=== PATIENT | female | born 1960 | race Two or more races ===

== ENCOUNTER 2025-03-09 18:27 | Emergency (ER) | payer OTHER ==
[~2025-03-09] VITALS: Ht 157.5 cm; Wt 64.9 kg
--- NOTE | 2025-03-09 18:41 | ECG ---
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
--- NOTE | 2025-03-09 19:10 | ED.PDOC ---
GI ASSESSMENT HPI Comments 64-year-old female who came to ER for abdominal pain. Patient denies any medical problems or any abdominal surgeries. States she has been having episodes of abdominal pain for over 4 months. Abdominal pain described to be diffuse, localized to the epigastric area, with the episodes of bloatedness e specially after meals. Also associated with nausea, vomiting, shortness a breath, fatigability, and blackish stools. Patient recently admitted at [facility], endoscopy with biopsy done, and patient was referred to [facility] for follow-up. Patient does not know what the biopsy results are. Persistence of abdominal pain prompting patient to come to the ER REVIEW OF SYSTEMS: General: No fever, no chills, or fatigue HEENT: No sore throat, no earache, no congestion, no neck pain. Cardiac: No chest pain. No palpitations. Lungs: (+) shortness of breath, no cough. GI: (+) nausea, (+) vomiting, no diarrhea, no constipation, (+) abdominal pain, (+) melena : No dysuria, frequency, or urgency. No hematuria. Musculoskeletal: No joint pain , no joint swelling, no extremity edema. Skin: No rash, no itching. Neuro: No headache, no dizziness, no weakness EXAM: General: Awake, alert and oriented. No acute distress. Skin: Skin in warm, dry and intact. Appropriate color for ethnicity. HEENT: The head is normocephalic and atraumatic. Conjunctivae are clear without exudates or hemorrhage. Sclera is non-icteric. EOM are intact. No signs of nystagmus. Eyelids are normal in appearance without swelling or lesions. Oral mucosa is pink and moist Neck: The neck is supple with normal range of motion. No JVD. Cardiac: Heart rate and rhythm are normal. No murmurs, gallops, or rubs are auscultated. Respiratory: No signs of respiratory distress. Lung sounds are clear in all lobes bilaterally without rales, rhonchi, or wheezes. Abdominal: Abdomen is tense, generally tender. Bowel sounds are present and normoactive in all four quadrants. Extremities: Upper and lower extremities are atraumatic in appearance without deformity or edema. Neurological: The patient is awake, alert and oriented to person, place, and time with normal speech. Speech is clear. There is no facial asymmetry. Normal gait. Psychiatric: Appropriate mood and affect. Good judgement and insight Chief Complaint: Abdominal Pain Time Seen by MD: 19:09 Reviewed Notes: Nurses Notes Allergies: Coded Allergies: No Known Drug Allergy (Verified Allergy, Unknown, 03/10/25) Information Source: Patient Mode of Arrival: Ambulatory Timing: Months Duration: Intermittent Past Medical History PAST MEDICAL HISTORY: Denies Surgical History (Other): Breast surgery, endoscopy JEWEL HOLE GAUGER History: Denies all JEWEL HOLE GAUGER Hx Family History Family History: Reviewed,noncontributory to illness Social History Smoker: Non-Smoker Alcohol: Denies ETOH Use Drugs: Denies Drug Use Lives In: Home EKG EKG : Pulse Rate (adult): 80 Cardiac Rhythm: NSR Was a procedure done? Was a procedure done?: No GI differential Dx Differential Diagnosis: Cholecystitis, Diverticular disease, Gastritis/PUD, Gastroenteritis, Hepatitis, Pancreatitis, UTI, Urolithiasis X-Ray, Labs, Meds, VS Vital Signs Date Time Temp Pulse Resp B/P (MAP) Pulse Ox O2 Delivery O2 Flow Rate FiO2 03/10/25 04:00 97.3 82 21 143/84 (103) 95 97.3 03/10/25 01:50 Room Air* 0 21 03/10/25 01:50 97.5 80 20 144/75 (98) 97 97.5 03/10/25 00:33 98.8 87 16 166/80 (108) 98 98.8 03/09/25 20:43 98.0 84 19 146/69 (94) 96 98.0 03/09/25 19:10 80 03/09/25 18:37 80 03/09/25 18:28 97.4 88 18 145/79 97 97.4 Lab Test 03/10/25 04:11 03/09/25 20:24 03/09/25 19:20 Range/Units White Blood Count 9.2 8.2 4.4-10.8 10^3/uL Red Blood Count 3.94 L 4.37 4.0-5.20 10^6/uL Hemoglobin 11.9 L 12.9 12.2-16.2 g/dL Hematocrit 34.5 #L 38.4 36.0-46.0 % Mean Corpuscular Volume 87.6 87.8 80.0-100.0 fL Mean Corpuscular Hemoglobin 30.2 29.5 28.0-32.0 pg Mean Corpuscular Hemoglobin Concent 34.5 33.6 32.0-36.0 g/dL Red Cell Distribution Width 14.4 H 14.2 11.8-14.3 % Platelet Count 585 H 646 H 140-450 10^3/uL Mean Platelet Volume 7.2 6.9 6.9-10.8 fL Neutrophils (%) (Auto) 75.1 63.8 37.0-80.0 % Lymphocytes (%) (Auto) 16.6 26.5 10.0-50.0 % Monocytes (%) (Auto) 7.1 7.9 0.0-12.0 % Eosinophils (%) (Auto) 0.4 0.8 0.0-7.0 % Basophils (%) (Auto) 0.8 1.0 0.0-2.0 % Neutrophils # (Auto) 6.9 5.2 1.6-8.6 10 ^3/uL Lymphocytes # (Auto) 1.5 2.2 0.4-5.4 10 ^3/uL Monocytes # (Auto) 0.7 0.6 0-1.3 10 ^3/uL Eosinophils # (Auto) 0 0.1 0-0.8 10 ^3/uL Basophils # (Auto) 0.1 0.1 0-0.2 10 ^3/uL Nucleated Red Blood Cells 0.0 0.0 % Sodium Level 134 L 134 L 136-145 mmol/L Potassium Level 3.9 4.0 3.5-5.1 mmol/L Chloride Level 96 L 96 L 98-107 mmol/L Carbon Dioxide Level 27 26 20-31 mmol/L Anion Gap 11 12 5-15 Blood Urea Nitrogen 8 L 6 L 9-23 mg/dL Creatinine 0.66 0.73 0.550-1.02 mg/dL Glomerular Filtration Rate Calc 97 91 >90 mL/min BUN/Creatinine Ratio 12.1 8.2 L 10.0-20.0 Serum Glucose 126 H 109 H 74-106 mg/dL Calcium Level 9.2 9.6 8.7-10.4 mg/dL Total Bilirubin 0.9 0.9 0.2-1.0 mg/dL Aspartate Amino Transferase (AST) 84 H 93 H 13-40 U/L Alanine Aminotransferase (ALT) 72 H 77 H 7-40 U/L Alkaline Phosphatase 754 H 804 H 46-116 U/L Total Protein 7.4 7.9 5.7-8.2 g/dL Albumin 3.8 4.2 3.2-4.8 g/dL Troponin I High Sensitivity < 3 L < 3 L </=34 ng/L Lactic Acid Level 1.2 0.4-2.0 mmol/L B-Type Natriuretic Peptide 21.62 0-100 pg/mL Lipase 57 H 12-53 U/L Current Medications Medications (Trade) Dose Ordered Sig/Maday Route Start Time Stop Time Status Last Admin Al Hydrox/Mg Hydrox/Simethicone (Maalox Plus) 30 ml ONCE ONCE PO 03/09/25 20:00 03/09/25 20:01 DC 03/09/25 20:47 Lidocaine HCl (Xylocaine 2% Viscous) 10 ml ONCE ONCE PO 03/09/25 20:00 03/09/25 20:01 DC 03/09/25 20:47 Sodium Chloride 1,000 ml @ 60 mls/hr [id number] IV 03/10/25 02:30 03/10/25 05:02 DC 03/10/25 03:23 Ondansetron HCl (Zofran) 4 mg Q4HP PRN IV 03/10/25 02:30 03/10/25 09:26 DC 03/10/25 03:44 Calcium Carbonate (Tums) 500 mg Q6HPRN PRN PO 03/10/25 03:45 03/10/25 09:26 DC 03/10/25 03:48 Exam: CT CT AB PEL WITH IV CON ONLY History: epigastric abdominal pain COMPARISON: None Technique: Multidetector spiral CT of the abdomen and pelvis was performed from lung bases to pubic symphysis. Intravenous contrast was administered during this examination. Portal venous imaging was obtained. Axial, coronal and sagittal multiplanar reformats were performed by the technologist on a separate workstation. Radiation Dose : 1. Abdomen/Pelvis: CTDIvol 10.11mGy, DLP 596.27 mGy*cm. Findings: Lower Chest: Mild scarring/atelectasis in the lung bases. Unremarkable imaged heart. Partially imaged breast implants. Liver: Small hypoenhancing lesion in the left lobe. Additional hypoenhancement along the falciform ligament. Micronodular contour suggested. Gallbladder and Biliary Tree: Distended gallbladder without evidence of stone or significant wall thickening. Small wall calcification near the fundus. No ductal dilation. Pancreas: Unremarkable. Spleen: Unremarkable Adrenal Glands: Unremarkable Kidneys: No acute findings. Simple right superior renal cyst. Bladder: Decompressed, no obvious abnormality. Pelvic Organs: Unremarkable. Bowel: No obstruction or significant bowel wall thickening. Small hiatal hernia. Nonvisualized appendix. Vasculature: Unremarkable. Lymphadenopathy: No evident adenopathy. Peritoneum: Large volume 4 quadrant ascites. No free air or fluid collection. Abdominal Wall: Right mid abdominal postsurgical change. Musculoskeletal: No acute findings. Mild degenerative changes. IMPRESSION: 1. Large volume 4 quadrant ascites of unclear etiology. Mild nodular contour of the liver is suggested, but no significant other findings associated with cirrhosis or portal hypertension are identified. Further clinical workup recommended. 2. Probably benign hypoenhancing hepatic lesions may be further characterized with outpatient liver CT or MRI if indicated based on risk factors. Radiation optimization: All CT scans at this facility use at least one of these dose optimization techniques: automated exposure control mA and/or kV adjustment per patient size (includes targeted exams where dose is matched to clinical indication) or iterative reconstruction. T RADIOGRAPH Indication: sob Technique: 1 view Comparison: None FINDINGS: Lines and Tubes: None Lungs/Pleura: No focal consolidation, pleural effusion or pneumothorax. Cardiomediastinum: Unremarkable. Other: No acute osseous abnormality. Breast implants. IMPRESSION: 1. No acute cardiopulmonary abnormality. Time of 1ST Reevaluation: 19:06 Reevaluation 1ST: Unchanged Patient Education/Counseling: Need For Follow Up Family Education/Counseling: No Family Present SEPSIS Sepsis Screen Date sepsis recognized/suspect: Mar 09, 2025 Time Sepsis recognized/suspect: 1830 Recent Procedure: No On Antibiotic Therapy: No Respiratory Rate >20: No Heart Rate >90: No Temp<36 C (96.8 F) or >38.3 C: No SBP <90 or MAP <65 mmHG: No New Acute Mental Status Change: No Is the patient on CPAP, BIPAP,: No Physician Orders Urinalysis (03/09/25 19:12) Chest Xray 1 View (03/09/25 19:12) Ct Ab Pel With Iv Con Only (03/09/25 19:12) * [facility] Blood [facility] (03/10/25 02:29) Code Status (03/10/25 02:29) Oxygen Per Hour (03/10/25 02:29) Discharge (03/10/25 05:11) Vital Signs Date Time Temp Pulse Resp B/P (MAP) Pulse Ox O2 Delivery O2 Flow Rate FiO2 03/10/25 04:00 97.3 82 21 143/84 (103) 95 97.3 03/10/25 01:50 Room Air* 0 21 03/10/25 01:50 97.5 80 20 144/75 (98) 97 97.5 03/10/25 00:33 98.8 87 16 166/80 (108) 98 98.8 03/09/25 20:43 98.0 84 19 146/69 (94) 96 98.0 03/09/25 19:10 80 03/09/25 18:37 80 03/09/25 18:28 97.4 88 18 145/79 97 97.4 Laboratory Tests Test 03/09/25 19:20 03/10/25 04:11 Lactic Acid Level 1.2 mmol/L (0.4-2.0) White Blood Count 8.2 10^3/uL (4.4-10.8) 9.2 10^3/uL (4.4-10.8) Departure 1 Departure Time of Disposition: 01:25 Impression: Primary Impression: Abdominal pain Additional Impressions: Ascites Elevated liver function tests Disposition: ADMITTED INPATIENT Condition: Stable Comments PATIENT ADMITTED TO HOSPITALIST SERVICE FOR FURTHER TREATMENT, EVALUATION AND MONITORING. Extensive evaluation was performed in attempt to identify or rule out: (See differential diagnosis section) The following tests were ordered, and results were reviewed by me and discussed with patient: (See diagnostic results section) Information was gathered from interviewing the following independent historians: N/A Discussion of management or test interpretation with external physician/other qualified health wound care physician: [place] at 4:30 a.m. Decision regarding hospitalization or escalation of hospital level of care: Risk and benefits of admission for further treatment of patient's condition was considered. Due to patient's current clinical condition, high risk of decline and poor outcome if discharged and need for further inpatient management and monitoring, patient will be admitted to the hospital. Discussed with patient. Drug therapy requiring intensive monitoring for toxicity: IV contrast Parenteral controlled substances: N/A Decision regarding elective major surgery with identified patient or procedure risk factors: N/A Decision regarding emergency major surgery: N/A Decision not to resuscitate or to de-escalate care because of poor prognosis: N/A Diagnosis or treatment significantly limited by social determinants of health: N/A Critical Care Note Critical Care Time?: No Stability Stability form required: No Heart Score Heart Score: Heart Score Response (Comments) Value History N/A 0 EKG N/A 0 Age N/A 0 Risk Factors N/A 0 Troponin N/A 0 Total 0 I personally scribed for FELIZ HARO MD ([email or web address]) on 03/09/25 at 19:10. Electronically submitted by Donovan Fernandes ([email or web address]). I personally scribed for FELIZ HAOR MD ([email or web address]) on 03/09/25 at 19:55. Electronically submitted by Donovan Fernandes ([email or web address]). I personally scribed for FELIZ HARO MD ([email or web address]) on 03/10/25 at 01:23. Electronically submitted by Donovan Fernandes ([email or web address]). FELIZ HARO MD Mar 09, 2025 19:10
[2025-03-09 19:37] LABS: Hematocrit 38.4 % (36.0-46.0); Hemoglobin 12.9 g/dL (12.2-16.2); Mean Corpuscular Hemoglobin 29.5 pg (28.0-32.0); Mean Corpuscular Volume 87.8 fL (80.0-100.0); Nucleated Red Blood Cells % 0.0 %
[2025-03-09 19:55] LABS: Albumin 4.2 g/dL (3.2-4.8); Anion Gap 12 (5-15); BUN/Creatinine Ratio 8.2 (10.0-20.0); Bilirubin, Total 0.9 mg/dL (0.2-1.0); Calcium 9.6 mg/dL (8.7-10.4); Carbon Dioxide 26 mmol/L (20-31); Potassium 4.0 mmol/L (3.5-5.1); Total Protein 7.9 g/dL (5.7-8.2)
[2025-03-09 20:00] LABS: Alanine Aminotransferase 77 U/L (7-40); Alkaline Phosphatase 804 U/L (46-116); Blood Urea Nitrogen 6 mg/dL (9-23); Chloride 96 mmol/L (98-107); Glucose 109 mg/dL (74-106); Lipase 57 U/L (12-53); Sodium 134 mmol/L (136-145)
[2025-03-09] MEDS: MAALOX PLUS or MAALOX 30 ML PO ONE (20:47)
[2025-03-09] MEDS: LIDOCAINE VISCOUS 2% 15ML UD PO ONE (20:47)
[2025-03-10] MEDS: IOHEXOL 300 MG/ML 100ML BOTTLE IJ ONE (00:14)
--- NOTE | 2025-03-10 00:42 | DVH ---
CHEST RADIOGRAPH Indication: sob Technique: 1 view Comparison: None FINDINGS: Lines and Tubes: None Lungs/Pleura: No focal consolidation, pleural effusion or pneumothorax. Cardiomediastinum: Unremarkable. Other: No acute osseous abnormality. Breast implants. IMPRESSION: 1. No acute cardiopulmonary abnormality.
--- NOTE | 2025-03-10 00:54 | DVH ---
Exam: CT CT AB PEL WITH IV CON ONLY History: epigastric abdominal pain COMPARISON: None Technique: Multidetector spiral CT of the abdomen and pelvis was performed from lung bases to pubic s ymphysis. Intravenous contrast was administered during this examination. Portal venous imaging was o btained. Axial, coronal and sagittal multiplanar reformats were performed by the technologist on a [employer] workstation. Radiation Dose : 1. Abdomen/Pelvis: CTDIvol 10.11mGy, DLP 596.27 mGy*cm. Findings: Lower Chest: Mild scarring/atelectasis in the lung bases. Unremarkable imaged heart. Partially nalini ged breast implants. Liver: Small hypoenhancing lesion in the left lobe. Additional hypoenhancement along the falciform li gament. Micronodular contour suggested. Gallbladder and Biliary Tree: Distended gallbladder without evidence of stone or significant wall thi ckening. Small wall calcification near the fundus. No ductal dilation. Pancreas: Unremarkable. Spleen: Unremarkable Adrenal Glands: Unremarkable Kidneys: No acute findings. Simple right superior renal cyst. Bladder: Decompressed, no obvious abnormality. Pelvic Organs: Unremarkable. Bowel: No obstruction or significant bowel wall thickening. Small hiatal hernia. Nonvisualized appe ndix. Vasculature: Unremarkable. Lymphadenopathy: No evident adenopathy. Peritoneum: Large volume 4 quadrant ascites. No free air or fluid collection. Abdominal Wall: Right mid abdominal postsurgical change. Musculoskeletal: No acute findings. Mild degenerative changes. IMPRESSION: 1. Large volume 4 quadrant ascites of unclear etiology. Mild nodular contour of the liver is suggest ed, but no significant other findings associated with cirrhosis or portal hypertension are identified . Further clinical workup recommended. 2. Probably benign hypoenhancing hepatic lesions may be further characterized with outpatient liver C T or MRI if indicated based on risk factors. Radiation optimization: All CT scans at this facility use at least one of these dose optimization [place] hniques: automated exposure control mA and/or kV adjustment per patient size (includes targeted exam s where dose is matched to clinical indication) or iterative reconstruction.
[2025-03-10] MEDS ORDERED: HYDROcodone-ACET 5/325MG TAB PO PRN (02:30)
[2025-03-10] MEDS ORDERED: MORPHINE SULFATE INJ 2 MG/ml SYRG IV PRN (02:30)
[2025-03-10] MEDS ORDERED: IBUPROFEN 600 MG TAB PO PRN (02:30)
[2025-03-10] MEDS ORDERED: DOCUSATE SOD 100 MG CAP PO PRN (02:30)
[2025-03-10] MEDS: SODIUM CHLORIDE 0.9% 1,000 ML IV SCH (03:23)
[2025-03-10] MEDS: ONDANSETRON HCL 4 MG/2 ML VIAL IV PRN (03:44)
[2025-03-10] MEDS: CALCIUM CARB 500 MG CHEW TAB PO PRN (03:48)
[2025-03-10 04:00] VITALS: BP 143/84; PULSE 82; RESP 21; TEMP 97.3; O2SAT 95
[2025-03-10 04:41] LABS: Hemoglobin 11.9 g/dL (12.2-16.2); Nucleated Red Blood Cells % 0.0 %
[2025-03-10 04:47] LABS: Hematocrit 34.5 % (36.0-46.0); Mean Corpuscular Hemoglobin 30.2 pg (28.0-32.0); Mean Corpuscular Volume 87.6 fL (80.0-100.0)
[2025-03-10 04:52] LABS: Albumin 3.8 g/dL (3.2-4.8); Anion Gap 11 (5-15); BUN/Creatinine Ratio 12.1 (10.0-20.0); Bilirubin, Total 0.9 mg/dL (0.2-1.0); Calcium 9.2 mg/dL (8.7-10.4); Carbon Dioxide 27 mmol/L (20-31); Potassium 3.9 mmol/L (3.5-5.1); Total Protein 7.4 g/dL (5.7-8.2)
[2025-03-10 04:54] LABS: Alanine Aminotransferase 72 U/L (7-40); Alkaline Phosphatase 754 U/L (46-116); Blood Urea Nitrogen 8 mg/dL (9-23); Chloride 96 mmol/L (98-107); Glucose 126 mg/dL (74-106); Sodium 134 mmol/L (136-145)
--- NOTE | 2025-03-10 05:15 | DVHINCON2 ---
ELIER BRYAN [employer] 03/10/25 0515: Date of service: Mar 10, [address] Montesinos Reason for Consultation Medical Management History of Present Illness 64-year-old female with past medical history of cholelithiasis presents with complaints of diffuse abdominal pain and swelling worsening over the previous 4 months. Patient was recently admitted to [facility] on February 08 2025 with similar complaints. As such he was found to have omental inflammation suspicious for malignancy. She did undergo an omental biopsy for which she received the results with the PCP. Patient is also scheduled to follow up with [facility] on March 29, 2025. During this emergency department evaluation Na 134, K4.0, BUN 6, creatinine 0.73, GFR 91, AST 93, ALT 77, alk-phos elevated 804, total bilirubin 0.9. W8.2, H&H 12.9/30.4, PLT 646. CT of the abdomen and pelvis with IV contrast impression reads large volume 4 quadrant ascites of unclear etiology. Mild nodular contour of the liver is suggested, but no significant other findings associated with cirrhosis or portal hypertension are identified. Further clinical workup recommended. Probable b enign hypo enhancing hepatic lesions may be further characterized with outpatient liver CT or MRI if indicated based on risk factors. At this time patient has no complaints of fevers, chills, dizziness, shortness of breath, chest pain, palpitations, leg swelling, hematemesis, hematochezia, melena. Past Surgical History Biopsy of omentum Allergies: Coded Allergies: No Known Drug Allergy (Verified Allergy, Unknown, 03/10/25) Current Medications Current Medications Medications (Trade) Dose Ordered Sig/Maday Route PRN Reason Start Time Stop Time Status Last Admin Famotidine (Pepcid Injection) 20 mg Q12HR IV 03/10/25 10:00 Sodium Chloride 1,000 ml @ 60 mls/hr [id number] IV 03/10/25 02:30 03/10/25 05:02 DC 03/10/25 03:23 Acetaminophen/ Hydrocodone Bitart ([place]away 5/325MG Tab) 1 tab Q4HP PRN PO MODERATE PAIN (4-6 PAIN SCALE) 03/10/25 02:30 Ondansetron HCl (Zofran) 4 mg Q4HP PRN IV NAUSEA / VOMITING 03/10/25 02:30 03/10/25 03:44 Docusate Sodium (Colace Capsule) 100 mg BIDPRN PRN PO FOR CONSTIPATION 03/10/25 02:30 Morphine Sulfate 2 mg Q4HPRN PRN IV SEVERE PAIN (7-10 PAIN SCALE) 03/10/25 02:30 Ibuprofen (Motrin Tablet) 600 mg Q6HP PRN PO PAIN SCALE 1-3 OR TEMP>100.4 03/10/25 02:30 Calcium Carbonate (Tums) 500 mg Q6HPRN PRN PO FOR STOMACH DISTRESS 03/10/25 03:45 03/10/25 03:48 Review of Systems Ten systems reviewed and negative except as per HPI Vital Signs Vital Signs Date Time Temp Pulse Resp B/P (MAP) Pulse Ox O2 Delivery O2 Flow Rate FiO2 03/10/25 04:00 97.3 82 21 143/84 (103) 95 97.3 03/10/25 01:50 Room Air* 0 21 Physical Exam GENERAL: Patient appearing stated age, in moderate acute distress. HEENT: Pupils equal and reactive to light and accommodation. Extraocular muscles intact. Mucous membranes moist. Conjunctivae pink. Anicteric sclerae. LUNGS: Bilateral air entry. No wheezes, rhonchi or rales. HEART: Regular rate and rhythm. Normal S1 and S2. ABDOMEN: BS normoactive. No CVA tenderness. Distended, diffuse tenderness. EXTREMITIES: No clubbing, cyanosis, edema. No calf tenderness. Pedal pulses 2+. NEUROLOGICAL: The patient is alert and oriented times 3. CN II-XII intact. No focal deficits on gross sensory or motor examination. Labs/Diagnostic Data Labs Test 03/10/25 04:11 03/09/25 20:24 03/09/25 19:20 Range/Units White Blood Count 9.2 4.4-10.8 10^3/uL Red Blood Count 3.94 L 4.0-5.20 10^6/uL Hemoglobin 11.9 L 12.2-16.2 g/dL Hematocrit 34.5 #L 36.0-46.0 % Mean Corpuscular Volume 87.6 80.0-100.0 fL Mean Corpuscular Hemoglobin 30.2 28.0-32.0 pg Mean Corpuscular Hemoglobin Concent 34.5 32.0-36.0 g/dL Red Cell Distribution Width 14.4 H 11.8-14.3 % Platelet Count 585 H 140-450 10^3/uL Mean Platelet Volume 7.2 6.9-10.8 fL Neutrophils (%) (Auto) 75.1 37.0-80.0 % Lymphocytes (%) (Auto) 16.6 10.0-50.0 % Monocytes (%) (Auto) 7.1 0.0-12.0 % Eosinophils (%) (Auto) 0.4 0.0-7.0 % Basophils (%) (Auto) 0.8 0.0-2.0 % Neutrophils # (Auto) 6.9 1.6-8.6 10 ^3/uL Lymphocytes # (Auto) 1.5 0.4-5.4 10 ^3/uL Monocytes # (Auto) 0.7 0-1.3 10 ^3/uL Eosinophils # (Auto) 0 0-0.8 10 ^3/uL Basophils # (Auto) 0.1 0-0.2 10 ^3/uL Nucleated Red Blood Cells 0.0 % Sodium Level 134 L 136-145 mmol/L Potassium Level 3.9 3.5-5.1 mmol/L Chloride Level 96 L 98-107 mmol/L Carbon Dioxide Level 27 20-31 mmol/L Anion Gap 11 5-15 Blood Urea Nitrogen 8 L 9-23 mg/dL Creatinine 0.66 0.550-1.02 mg/dL Glomerular Filtration Rate Calc 97 >90 mL/min BUN/Creatinine Ratio 12.1 10.0-20.0 Serum Glucose 126 H 74-106 mg/dL Calcium Level 9.2 8.7-10.4 mg/dL Total Bilirubin 0.9 0.2-1.0 mg/dL Aspartate Amino Transferase (AST) 84 H 13-40 U/L Alanine Aminotransferase (ALT) 72 H 7-40 U/L Alkaline Phosphatase 754 H 46-116 U/L Total Protein 7.4 5.7-8.2 g/dL Albumin 3.8 3.2-4.8 g/dL Troponin I High Sensitivity < 3 L </=34 ng/L Lactic Acid Level 1.2 0.4-2.0 mmol/L B-Type Natriuretic Peptide 21.62 0-100 pg/mL Lipase 57 H 12-53 U/L Assessment -Large volume ascites -abnormal LFTs -suspected malignancy The patient chart was reviewed in its entirety including current emergency department evaluation and previous admission on February 08, 2025, lab work, imaging, surgical reports, cytology report, surgical pathology reports. During this emergency department evaluation W8.2, H&H 12.9/38.4, PLT 646, Na 134, K4.0, BUN 6, creatinine 0.73, GFR 91, AST 93, ALT 77, alk-phos 804, total bilirubin 0.9, lipase 57. Troponins negative /3. All lab work consistent with previous admission on February [address] of the abdomen and pelvis was interpreted per the radiologist and reviewed by myself. Impression reads large volume 4 q uadrant ascites of unclear etiology. Mild nodular contour of the liver is suggested with no significant other findings associated with cirrhosis or portal hypertension are identified. Probable benign hypoenhancing hepatic lesions may be further characterized with outpatient liver CT or MRI if indicated based on risk factors. Chest x-ray was interpreted per the radiologist and reviewed by myself with no acute cardiopulmonary disease. Vital signs are WNL patient afebrile 97.3 BP 143/84, HR 82, RR 20 beats per minute, oxygen saturation 95% on room air with no signs of respiratory distress. The patient is nontoxic appearing, alert and oriented x4, and able to ambulate independently with a steady gait. During previous admission CA 125 elevated at 443. Medical cytology report did indicate neoplastic cells positive for MBC 31, Boby/EP4, CK7, GATA3, CK5/6. 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 Plan/Recommendation At this time I did consider inpatient admission given that the patient is in need of paracentesis for the large volume ascites. However I did receive approval from [facility] for urgent outpatient paracentesis which is scheduled for 2:45 p.m. at [facility] this afternoon. Patient endorsed that she has already received the results of her pathology reports from a PCP. States she also has an appointment with [facility] on March 29, 2025. Considering that the patient is hemodynamically stable and there are no signs of acute respi ratory distress I am discharging the patient home with close follow up and scheduled outpatient paracentesis for this afternoon. I did advise the ER physician of this plan. [facility] oil field caser Antonietta has been consulted to establish home safety evaluation and urgent paracentesis at [facility] which has already been approved and scheduled for this afternoon. We will also follow up with patient at [facility] for as needed care. Plan of care was discussed in detail with the patient (per the patient's preference in Vietnamese) for which she states that she understands and agrees. She has been provided with directions and addresses for both [facility] and [facility] urgent care. I also took the time to explain paracentesis to the patient. I strongly advised the patient to keep her follow-up appointments with [facility]. Patient was provided with strict ER precautions including but not limited to dizziness, syncope, shortness of breath, chest pain, palpitations, nausea, vomiting, blood in emesis, blood in stool, worsening abdominal distention and pain. If any of these occur, please return to the nearest emergency department for further evaluation and treatment. Plan discussed with: Patient REGULO ALEXANDER MD 03/10/25 1619: Allergies: Coded Allergies: No Known Drug Allergy (Verified Allergy, Unknown, 03/10/25) Additional Comments Additional Comments Additional Comments Patient's chart is reviewed and discussed with the nurse practitioner. Patient is seen and evaluated by nurse practitioner in the ER. I agree with his evaluation, documentation, assessment and care plan as outlined. ELIER BRYAN NP Mar 10, 2025 05:15 REGULO ALEXANDER MD Mar 10, 2025 16:19
[2025-03-10] MEDS ORDERED: FAMOTIDINE (10MG/ML) 2ML VL IV SCH (10:00)
== END 2025-03-10 05:25 | disposition home or self-care (01) ==
LOC: ER 18:27
DX: R10.13 Epigastric pain (principal); R18.8 Other ascites; R79.89 Other specified abnormal findings of blood chemistry
CPT/HCPCS: 36415; 71045; 74177; 80053; 83605; 83690; 83880; 84484; 85025; 93005; 96361; 96374; 99285; J2405; J7030; Q9967